=== PATIENT | male | born 1940 | race African-American/Black ===

== ENCOUNTER 2020-10-11 09:08 | Inpatient (IN) | payer MEDICARE ==
[2020-10-11] MEDS ORDERED: Dexamethasone 10 MG/ML VIAL ONE (09:25)
[2020-10-11] MEDS ORDERED: Aspirin 300 MG Suppository ONE (09:26)
[2020-10-11] MEDS ORDERED: Aspirin Chewable 81 MG TAB ONE (09:28)
[2020-10-11] MEDS ORDERED: cefTRIAXone\\ROCEPHIN 2 GM VIAL ONE (09:41)
[2020-10-11 10:46] LABS: CRP (Inflammatory) 22.54 mg/dL (= or < 0.5); Magnesium 2.4 mg/dL (1.6-2.6)
[2020-10-11] MEDS ORDERED: Enoxaparin Sodium 100 MG/ML SYRINGE ONE (10:49)
[2020-10-11 10:51] LABS: Analyzer IN Cardio ER; Base Excess (BEa) -3.3 mEq/L (-2.0 to +3.0); Calcium, Ionized (arterial) 1.01 mmol/L (1.12-1.30); Carboxyhemoglobin (COHb) 0.8 gm% (0.0-3.0); Hemoglobin (Hb) 15.2 g/dL (14.0-18.0); pH, Arterial 7.49 (7.35-7.45)
[2020-10-11 10:53] LABS: ALV-art Gradient 203.675 mmHg (0-20); CO2 Tension 24.1 mmHg (35.0-45.0); O2 Tension (PaO2), arterial 51.4 mmHg (> 70.0); Puncture Site LRA
[2020-10-11 10:57] LABS: Hemoglobin 17.3 g/dL (14.0-18.0); Mean Corpuscular HGB CONC 31.9 g/dL (32.0-36.0); Mean Corpuscular Hemoglobin 28.2 pg (27.0-31.0); Mean Corpuscular Volume 88.5 fL (78.0-98.0); Mean Platelet Volume 9.1 fL (7.4-10.4); Platelet Count 221 thou/uL (130-400); RBC Distribution Width 14.2 % (11.5-14.5); Red Blood Cell (RBC) Count 6.13 mill/uL (4.70-6.10); White Blood Cell (WBC) Count 28.7 thou/uL (4.8-10.8)
[2020-10-11 10:58] LABS: Albumin 3.1 g/dL (3.4-4.8)
[2020-10-11 10:59] LABS: Chloride 104 mmol/L (98-107); Potassium 4.3 mmol/L (3.5-5.1); Sodium 142 mmol/L (136-145)
[2020-10-11 11:00] LABS: Calcium 8.1 mg/dL (7.8-10.44)
[2020-10-11 11:01] LABS: Globulin 4.4 g/dL (2.4-3.5); Glucose 152 mg/dL (83-110); Protein, Total 7.5 g/dL (5.8-8.1)
[2020-10-11 11:02] LABS: Anion Gap 20 mmol/L (10-20); Carbon Dioxide 22 mmol/L (23-31)
[2020-10-11 11:03] LABS: Alkaline Phosphatase 101 U/L (40-110)
[2020-10-11 11:04] LABS: Calc. Creatinine Clearance 0 mL/min (70-130)
[2020-10-11 11:05] LABS: BUN (Urea Nitrogen) 55 mg/dL (8.4-25.7)
[2020-10-11 11:06] LABS: ALT (SGPT) 53 U/L (8-55); AST (SGOT) 52 U/L (5-34)
[2020-10-11] MEDS ORDERED: Vancomycin 1 GM/200 ML BAG ONE (11:08)
[2020-10-11 11:16] LABS: Band 1 % (5-11); Lymphocytes 7 % (21-51); MDiff Complete? YES; Metamyelocyte 1 % (0-0); Monocytes 2 % (0-10); Myelocyte 2 % (0-0); Neutrophil 86 % (42-75); Platelet Clumps SLIGHT; Platelet Morphology Comment Appears Adequate; Polychromasia SLIGHT = 2-3 cells (100X) (0-2/hpf); Reactive Lymphocytes 1 % (0-10)
[2020-10-11] MEDS ORDERED: Acetaminophen 325 MG TAB PO PRN (11:57)
[2020-10-11 12:28] LABS: CKMB 3.7 ng/mL (0-6.6)
[2020-10-11] MEDS ORDERED: Tocilizumab 400 MG, Tocilizumab 200 MG in Sodium Chloride 0.9% 100 ML IV SCH (13:45)
[2020-10-11] MEDS: Azithromycin 500 MG in Sodium Chloride 0.9% 250 ML 250 ML IVPB SCH (14:25)
[2020-10-11 14:52] LABS: Lactic Acid 3.1 mmol/L (0.5-2.2)
[2020-10-11 18:30] LABS: Troponin I Less than 0.100 ng/mL (< 0.028)
[2020-10-11] MEDS: Mometasone 200 MCG/Formoterol 5 MCG 120 PUFF INHALER INH SCH (19:09)
[2020-10-11] MEDS ORDERED: Enoxaparin Sodium 30 MG/0.3 ML SYRINGE SC SCH (21:00)
[2020-10-11] MEDS: Dexamethasone 6 MG in Sodium Chloride 0.9% 50 ML IVPB SCH (21:05)
[2020-10-11] MEDS: Famotidine/PF 20 mg/2ml Vial SLOW IVP SCH (21:06)
[2020-10-12 04:38] LABS: Band 4 % (5-11); Hemoglobin 16.1 g/dL (14.0-18.0); Lymphocytes 6 % (21-51); MDiff Complete? YES; Mean Corpuscular Hemoglobin 27.8 pg (27.0-31.0); Mean Corpuscular Volume 89.6 fL (78.0-98.0); Mean Platelet Volume 8.5 fL (7.4-10.4); Monocytes 9 % (0-10); Neutrophil 81 % (42-75); Platelet Count 238 thou/uL (130-400); Platelet Morphology Comment Appears Adequate; RBC Distribution Width 14.2 % (11.5-14.5); RBC Morphology Normal; Red Blood Cell (RBC) Count 5.81 mill/uL (4.70-6.10); White Blood Cell (WBC) Count 27.8 thou/uL (4.8-10.8)
[2020-10-12 04:49] LABS: Anion Gap 18 mmol/L (10-20); BUN (Urea Nitrogen) 51 mg/dL (8.4-25.7); Calc. Creatinine Clearance 37 mL/min (70-130); Calcium 8.2 mg/dL (7.8-10.44); Carbon Dioxide 19 mmol/L (23-31); Chloride 111 mmol/L (98-107); Glucose 147 mg/dL (83-110); Potassium 4.5 mmol/L (3.5-5.1); Sodium 143 mmol/L (136-145)
[2020-10-12] MEDS ORDERED: Dexamethasone 6 MG in Sodium Chloride 0.9% 50 ML IVPB SCH (09:00)
[2020-10-12] MEDS ORDERED: cefTRIAXone\\ROCEPHIN 1 GM in Sodium Chloride 0.9% 100 ML IVPB SCH (10:00)
[2020-10-12] MEDS: Sodium Chloride 0.45% 1,000 ML IV SCH ×2 (11:03→21:23)
[2020-10-12] MEDS: Enoxaparin Sodium 30 MG/0.3 ML SYRINGE SC SCH ×2 (11:04→20:56)
[2020-10-12] MEDS: Dexamethasone 6 MG in Sodium Chloride 0.9% 50 ML IVPB SCH ×2 (11:04→20:57)
[2020-10-12] MEDS: Azithromycin 500 MG in Sodium Chloride 0.9% 250 ML 250 ML IVPB SCH (14:47)
[2020-10-12] MEDS: Cholecalciferol 1,000 UNITS (25 MCG) TAB PO SCH (20:57)
[2020-10-12] MEDS: Famotidine/PF 20 mg/2ml Vial SLOW IVP SCH (20:57)
[2020-10-12] MEDS: Ascorbic Acid 500 mg Chewable Tablet PO SCH (20:57)
[2020-10-13] MEDS: Mometasone 200 MCG/Formoterol 5 MCG 120 PUFF INHALER INH SCH ×4 (02:40→22:36)
[2020-10-13 03:52] LABS: Hemoglobin 16.3 g/dL (14.0-18.0); Mean Corpuscular HGB CONC 29.9 g/dL (32.0-36.0); Mean Corpuscular Hemoglobin 26.9 pg (27.0-31.0); Platelet Count 201 thou/uL (130-400); Red Blood Cell (RBC) Count 6.07 mill/uL (4.70-6.10); White Blood Cell (WBC) Count 32.5 thou/uL (4.8-10.8)
[2020-10-13 04:06] LABS: Anion Gap 14 mmol/L (10-20); BUN (Urea Nitrogen) 51 mg/dL (8.4-25.7); CRP (Inflammatory) 11.31 mg/dL (= or < 0.5); Calc. Creatinine Clearance 37 mL/min (70-130); Carbon Dioxide 21 mmol/L (23-31); Chloride 111 mmol/L (98-107); Glucose 144 mg/dL (83-110); Potassium 3.9 mmol/L (3.5-5.1); Sodium 142 mmol/L (136-145)
[2020-10-13 04:11] LABS: Lymphocytes 2 % (21-51); MDiff Complete? YES; Neutrophil 98 % (42-75)
[2020-10-13] MEDS ORDERED: Colchicine 0.3 MG TAB PO SCH (09:00)
[2020-10-13] MEDS: Ascorbic Acid 500 mg Chewable Tablet PO SCH ×2 (10:00→21:10)
[2020-10-13] MEDS: Aspirin Chewable 81 MG TAB PO SCH (10:51)
[2020-10-13] MEDS: Cefepime 1 GM in Sodium Chloride 0.9% 100 ML IVPB SCH ×2 (10:52→21:11)
[2020-10-13] MEDS: Colchicine 0.6 MG TAB PO SCH ×2 (10:52→21:10)
[2020-10-13] MEDS: Enoxaparin Sodium 30 MG/0.3 ML SYRINGE SC SCH ×2 (10:53→21:09)
[2020-10-13] MEDS: Dexamethasone 6 MG in Sodium Chloride 0.9% 50 ML IVPB SCH ×2 (10:53→21:09)
[2020-10-13] MEDS: Tamsulosin HCl 0.4 MG CAP PO SCH (10:54)
[2020-10-13] MEDS: Zinc Sulfate 220 MG CAP PO SCH (10:54)
[2020-10-13] MEDS: Famotidine/PF 20 mg/2ml Vial SLOW IVP SCH (21:10)
[2020-10-13] MEDS: Cholecalciferol 1,000 UNITS (25 MCG) TAB PO SCH (21:10)
[2020-10-13] MEDS: Atorvastatin Calcium 40 MG TAB PO SCH (21:10)
[2020-10-14] MEDS: D5 1/4 NS 1,000 ML IV SCH ×2 (02:48→17:00)
[2020-10-14] MEDS: Mometasone 200 MCG/Formoterol 5 MCG 120 PUFF INHALER INH SCH ×2 (09:00→18:34)
[2020-10-14] MEDS: Ascorbic Acid 500 mg Chewable Tablet PO SCH ×2 (12:03→21:05)
[2020-10-14] MEDS: Cefepime 1 GM in Sodium Chloride 0.9% 100 ML IVPB SCH ×2 (12:04→22:04)
[2020-10-14] MEDS: Aspirin Chewable 81 MG TAB PO SCH (12:04)
[2020-10-14] MEDS: Dexamethasone 6 MG in Sodium Chloride 0.9% 50 ML IVPB SCH ×2 (12:05→22:03)
[2020-10-14] MEDS: Colchicine 0.6 MG TAB PO SCH ×2 (12:05→21:05)
[2020-10-14] MEDS: Enoxaparin Sodium 30 MG/0.3 ML SYRINGE SC SCH ×2 (12:05→21:06)
[2020-10-14] MEDS: Zinc Sulfate 220 MG CAP PO SCH (12:06)
[2020-10-14] MEDS: Tamsulosin HCl 0.4 MG CAP PO SCH (12:06)
[2020-10-14] MEDS: Atorvastatin Calcium 40 MG TAB PO SCH (21:05)
[2020-10-14] MEDS: Cholecalciferol 1,000 UNITS (25 MCG) TAB PO SCH (21:05)
[2020-10-14] MEDS: Famotidine/PF 20 mg/2ml Vial SLOW IVP SCH (21:05)
[2020-10-15 07:39] LABS: Band 3 % (5-11); Hemoglobin 17.7 g/dL (14.0-18.0); Lymphocytes 3 % (21-51); MDiff Complete? YES; Mean Corpuscular HGB CONC 32.4 g/dL (32.0-36.0); Mean Corpuscular Hemoglobin 28.3 pg (27.0-31.0); Mean Corpuscular Volume 87.5 fL (78.0-98.0); Mean Platelet Volume 9.5 fL (7.4-10.4); Monocytes 2 % (0-10); Neutrophil 92 % (42-75); Nucleated RBC 1 % (0); Platelet Count 189 thou/uL (130-400); Polychromasia SLIGHT = 2-3 cells (100X) (0-2/hpf); RBC Distribution Width 14.2 % (11.5-14.5); Red Blood Cell (RBC) Count 6.26 mill/uL (4.70-6.10); White Blood Cell (WBC) Count 27.1 thou/uL (4.8-10.8)
[2020-10-15 07:44] LABS: Anion Gap 19 mmol/L (10-20); BUN (Urea Nitrogen) 39 mg/dL (8.4-25.7); Calc. Creatinine Clearance 52 mL/min (70-130); Calcium 8.3 mg/dL (7.8-10.44); Carbon Dioxide 19 mmol/L (23-31); Chloride 109 mmol/L (98-107); Glucose 133 mg/dL (83-110); Potassium 3.7 mmol/L (3.5-5.1); Sodium 143 mmol/L (136-145)
[2020-10-15] MEDS: Cefepime 1 GM in Sodium Chloride 0.9% 100 ML IVPB SCH ×2 (08:14→20:48)
[2020-10-15] MEDS: Zinc Sulfate 220 MG CAP PO SCH (08:15)
[2020-10-15] MEDS: Ascorbic Acid 500 mg Chewable Tablet PO SCH ×2 (08:15→20:49)
[2020-10-15] MEDS: Tamsulosin HCl 0.4 MG CAP PO SCH (08:15)
[2020-10-15] MEDS: Colchicine 0.6 MG TAB PO SCH ×2 (08:15→20:49)
[2020-10-15] MEDS: Aspirin Chewable 81 MG TAB PO SCH (08:15)
[2020-10-15] MEDS: Dexamethasone 6 MG in Sodium Chloride 0.9% 50 ML IVPB SCH ×2 (08:16→20:48)
[2020-10-15] MEDS: Enoxaparin Sodium 30 MG/0.3 ML SYRINGE SC SCH ×2 (08:16→20:49)
[2020-10-15] MEDS: D5 1/4 NS 1,000 ML IV SCH (08:58)
[2020-10-15] MEDS: Mometasone 200 MCG/Formoterol 5 MCG 120 PUFF INHALER INH SCH ×2 (10:12→18:54)
[2020-10-15] MEDS: Cholecalciferol 1,000 UNITS (25 MCG) TAB PO SCH (20:49)
[2020-10-15] MEDS: Atorvastatin Calcium 40 MG TAB PO SCH (20:49)
[2020-10-15] MEDS: Famotidine/PF 20 mg/2ml Vial SLOW IVP SCH (20:49)
[2020-10-16 04:28] LABS: Anion Gap 18 mmol/L (10-20); BUN (Urea Nitrogen) 37 mg/dL (8.4-25.7); Calc. Creatinine Clearance 53 mL/min (70-130); Carbon Dioxide 15 mmol/L (23-31); Chloride 114 mmol/L (98-107); Glucose 118 mg/dL (83-110); Potassium 4.1 mmol/L (3.5-5.1); Sodium 143 mmol/L (136-145)
[2020-10-16 04:50] LABS: Band 5 % (5-11); Hemoglobin 17.5 g/dL (14.0-18.0); Lymphocytes 2 % (21-51); MDiff Complete? YES; Mean Corpuscular HGB CONC 32.2 g/dL (32.0-36.0); Mean Corpuscular Hemoglobin 28.3 pg (27.0-31.0); Mean Corpuscular Volume 87.9 fL (78.0-98.0); Mean Platelet Volume 10.3 fL (7.4-10.4); Monocytes 1 % (0-10); Neutrophil 92 % (42-75); Nucleated RBC 3 % (0); Platelet Clumps MODERATE; Platelet Morphology Comment PLT clumps seen-ADEQ; RBC Distribution Width 14.4 % (11.5-14.5); Red Blood Cell (RBC) Count 6.18 mill/uL (4.70-6.10); White Blood Cell (WBC) Count 33.9 thou/uL (4.8-10.8)
[2020-10-16] MEDS: Colchicine 0.6 MG TAB PO SCH ×2 (08:20→21:24)
[2020-10-16] MEDS: Zinc Sulfate 220 MG CAP PO SCH (08:20)
[2020-10-16] MEDS: Ascorbic Acid 500 mg Chewable Tablet PO SCH ×2 (08:20→21:24)
[2020-10-16] MEDS: Lisinopril/Hydrochlorothiazide 10 mg/12.5 mg Tablet PO SCH (08:20)
[2020-10-16] MEDS: Enoxaparin Sodium 30 MG/0.3 ML SYRINGE SC SCH ×2 (08:20→21:25)
[2020-10-16] MEDS: Aspirin Chewable 81 MG TAB PO SCH (08:20)
[2020-10-16] MEDS: Tamsulosin HCl 0.4 MG CAP PO SCH (08:20)
[2020-10-16] MEDS: Cefepime 1 GM in Sodium Chloride 0.9% 100 ML IVPB SCH ×2 (08:25→21:21)
[2020-10-16] MEDS ORDERED: Sodium Bicarbonate 150 MEQ in Dextrose 5% in Water 1,000 ML IV SCH (08:30)
[2020-10-16] MEDS: Dextrose 5 %-0.45 % NaCl 1,000 ML IV SCH ×2 (10:24→23:50)
[2020-10-16] MEDS: Mometasone 200 MCG/Formoterol 5 MCG 120 PUFF INHALER INH SCH ×2 (10:24→18:59)
[2020-10-16] MEDS: Dexamethasone 6 MG in Sodium Chloride 0.9% 50 ML IVPB SCH ×2 (10:24→21:22)
[2020-10-16] MEDS: Cholecalciferol 1,000 UNITS (25 MCG) TAB PO SCH (21:24)
[2020-10-16] MEDS: Atorvastatin Calcium 40 MG TAB PO SCH (21:24)
[2020-10-16] MEDS: Famotidine/PF 20 mg/2ml Vial SLOW IVP SCH (21:25)
[2020-10-17 03:52] LABS: Hemoglobin 17.7 g/dL (14.0-18.0); Mean Corpuscular HGB CONC 32.2 g/dL (32.0-36.0); Mean Corpuscular Hemoglobin 28.9 pg (27.0-31.0); Mean Corpuscular Volume 89.7 fL (78.0-98.0); RBC Distribution Width 14.7 % (11.5-14.5); Red Blood Cell (RBC) Count 6.12 mill/uL (4.70-6.10); White Blood Cell (WBC) Count 28.1 thou/uL (4.8-10.8)
[2020-10-17 04:15] LABS: Anion Gap 16 mmol/L (10-20); BUN (Urea Nitrogen) 39 mg/dL (8.4-25.7); Calc. Creatinine Clearance 55 mL/min (70-130); Calcium 8.1 mg/dL (7.8-10.44); Carbon Dioxide 15 mmol/L (23-31); Chloride 114 mmol/L (98-107); Glucose 141 mg/dL (83-110); Potassium 3.5 mmol/L (3.5-5.1); Sodium 141 mmol/L (136-145)
[2020-10-17 04:47] LABS: Lymphocytes 4 % (21-51); MDiff Complete? YES; Monocytes 1 % (0-10); Neutrophil 95 % (42-75); Platelet Clumps SLIGHT; Platelet Morphology Comment PLT clumps seen-ADEQ
[2020-10-17] MEDS: Lisinopril/Hydrochlorothiazide 10 mg/12.5 mg Tablet PO SCH (09:33)
[2020-10-17] MEDS: Zinc Sulfate 220 MG CAP PO SCH (09:33)
[2020-10-17] MEDS: Tamsulosin HCl 0.4 MG CAP PO SCH (09:33)
[2020-10-17] MEDS: Ascorbic Acid 500 mg Chewable Tablet PO SCH ×2 (09:33→21:03)
[2020-10-17] MEDS: Aspirin Chewable 81 MG TAB PO SCH (09:34)
[2020-10-17] MEDS: Colchicine 0.6 MG TAB PO SCH ×2 (09:34→21:04)
[2020-10-17] MEDS: Cefepime 1 GM in Sodium Chloride 0.9% 100 ML IVPB SCH ×2 (09:35→21:03)
[2020-10-17] MEDS: Enoxaparin Sodium 30 MG/0.3 ML SYRINGE SC SCH ×2 (09:36→21:04)
[2020-10-17] MEDS: Mometasone 200 MCG/Formoterol 5 MCG 120 PUFF INHALER INH SCH ×2 (09:37→18:15)
[2020-10-17] MEDS: Dextrose 5 %-0.45 % NaCl 1,000 ML IV SCH (09:39)
[2020-10-17] MEDS: Dexamethasone 6 MG in Sodium Chloride 0.9% 50 ML IVPB SCH ×2 (09:44→21:03)
[2020-10-17] MEDS: Atorvastatin Calcium 40 MG TAB PO SCH (21:03)
[2020-10-17] MEDS: Cholecalciferol 1,000 UNITS (25 MCG) TAB PO SCH (21:03)
[2020-10-17] MEDS: Famotidine/PF 20 mg/2ml Vial SLOW IVP SCH (21:03)
[2020-10-17] MEDS: Doxycycline 100 MG CAP PO SCH (21:03)
[2020-10-18] MEDS: Dextrose 5 %-0.45 % NaCl 1,000 ML IV SCH ×2 (01:02→11:22)
[2020-10-18 03:53] LABS: Chloride 114 mmol/L (98-107); Potassium 4.8 mmol/L (3.5-5.1)
[2020-10-18 03:54] LABS: Calcium 7.9 mg/dL (7.8-10.44); Glucose 123 mg/dL (83-110); Sodium 139 mmol/L (136-145)
[2020-10-18 03:56] LABS: Carbon Dioxide 13 mmol/L (23-31)
[2020-10-18 03:58] LABS: Calc. Creatinine Clearance 56 mL/min (70-130)
[2020-10-18 03:59] LABS: BUN (Urea Nitrogen) 37 mg/dL (8.4-25.7)
[2020-10-18 04:34] LABS: Anion Gap 17 mmol/L (10-20)
[2020-10-18 06:50] LABS: Hemoglobin 17.3 g/dL (14.0-18.0); Mean Corpuscular HGB CONC 32.3 g/dL (32.0-36.0); Mean Corpuscular Hemoglobin 28.9 pg (27.0-31.0); Mean Corpuscular Volume 89.5 fL (78.0-98.0); Mean Platelet Volume 10.7 fL (7.4-10.4); Red Blood Cell (RBC) Count 5.99 mill/uL (4.70-6.10); White Blood Cell (WBC) Count 22.9 thou/uL (4.8-10.8)
[2020-10-18 07:17] LABS: Band 1 % (5-11); Lymphocytes 4 % (21-51); MDiff Complete? YES; Monocytes 6 % (0-10); Neutrophil 85 % (42-75); Platelet Clumps MARKED; Platelet Morphology Comment PLT clumps seen-ADEQ; RBC Morphology Normal; Reactive Lymphocytes 4 % (0-10)
[2020-10-18] MEDS: Ascorbic Acid 500 mg Chewable Tablet PO SCH ×2 (09:08→20:34)
[2020-10-18] MEDS: Doxycycline 100 MG CAP PO SCH ×2 (09:08→20:34)
[2020-10-18] MEDS: Aspirin Chewable 81 MG TAB PO SCH (09:08)
[2020-10-18] MEDS: Enoxaparin Sodium 30 MG/0.3 ML SYRINGE SC SCH (09:08)
[2020-10-18] MEDS: Lisinopril/Hydrochlorothiazide 10 mg/12.5 mg Tablet PO SCH (09:08)
[2020-10-18] MEDS: Tamsulosin HCl 0.4 MG CAP PO SCH (09:08)
[2020-10-18] MEDS: Zinc Sulfate 220 MG CAP PO SCH (09:08)
[2020-10-18] MEDS: Colchicine 0.6 MG TAB PO SCH ×2 (09:08→20:34)
[2020-10-18] MEDS: Dexamethasone 6 MG in Sodium Chloride 0.9% 50 ML IVPB SCH ×2 (09:12→20:34)
[2020-10-18] MEDS: Cefepime 1 GM in Sodium Chloride 0.9% 100 ML IVPB SCH ×2 (09:12→20:33)
[2020-10-18] MEDS: Enoxaparin Sodium 40 MG/0.4 ML SYRINGE SC SCH ×2 (11:03→20:35)
[2020-10-18] MEDS: Mometasone 200 MCG/Formoterol 5 MCG 120 PUFF INHALER INH SCH ×2 (11:04→20:33)
[2020-10-18] MEDS: Cholecalciferol 1,000 UNITS (25 MCG) TAB PO SCH (20:34)
[2020-10-18] MEDS: Famotidine/PF 20 mg/2ml Vial SLOW IVP SCH (20:34)
[2020-10-18] MEDS: Atorvastatin Calcium 40 MG TAB PO SCH (20:34)
[2020-10-19] MEDS: Mometasone 200 MCG/Formoterol 5 MCG 120 PUFF INHALER INH SCH ×2 (07:20→20:26)
[2020-10-19 07:26] LABS: Anion Gap 14 mmol/L (10-20); BUN (Urea Nitrogen) 37 mg/dL (8.4-25.7); Calc. Creatinine Clearance 51 mL/min (70-130); Calcium 8.6 mg/dL (7.8-10.44); Carbon Dioxide 20 mmol/L (23-31); Chloride 111 mmol/L (98-107); Glucose 125 mg/dL (83-110); Potassium 3.9 mmol/L (3.5-5.1); Sodium 141 mmol/L (136-145)
[2020-10-19 07:43] LABS: #Lymphocytes 1.9 thou/uL (1.20-3.40); #Monocytes 1.2 thou/uL (0.11-0.59); #Neutrophils 15.9 thou/uL (1.40-6.50); %Neutrophils 83.4 % (42.0-75.0); Band 1 % (5-11); Hemoglobin 18.3 g/dL (14.0-18.0); Lymphocytes 7 % (21-51); MDiff Complete? YES; Mean Corpuscular HGB CONC 32.2 g/dL (32.0-36.0); Mean Corpuscular Hemoglobin 28.3 pg (27.0-31.0); Mean Corpuscular Volume 87.9 fL (78.0-98.0); Mean Platelet Volume 9.6 fL (7.4-10.4); Monocytes 4 % (0-10); Neutrophil 86 % (42-75); Platelet Count 148 thou/uL (130-400); Platelet Morphology Comment Appears Adequate; RBC Distribution Width 15.1 % (11.5-14.5); RBC Morphology Normal; Reactive Lymphocytes 2 % (0-10); Red Blood Cell (RBC) Count 6.45 mill/uL (4.70-6.10); White Blood Cell (WBC) Count 19.8 thou/uL (4.8-10.8)
[2020-10-19] MEDS: Ascorbic Acid 500 mg Chewable Tablet PO SCH ×2 (09:17→20:26)
[2020-10-19] MEDS: Aspirin Chewable 81 MG TAB PO SCH (09:17)
[2020-10-19] MEDS: Dextrose 5 %-0.45 % NaCl 1,000 ML IV SCH (09:17)
[2020-10-19] MEDS: Cefepime 1 GM in Sodium Chloride 0.9% 100 ML IVPB SCH ×2 (09:17→20:26)
[2020-10-19] MEDS: Colchicine 0.6 MG TAB PO SCH ×2 (09:18→20:26)
[2020-10-19] MEDS: Enoxaparin Sodium 40 MG/0.4 ML SYRINGE SC SCH ×2 (09:18→20:27)
[2020-10-19] MEDS: Lisinopril/Hydrochlorothiazide 10 mg/12.5 mg Tablet PO SCH (09:18)
[2020-10-19] MEDS: Doxycycline 100 MG CAP PO SCH ×2 (09:18→20:26)
[2020-10-19] MEDS: Tamsulosin HCl 0.4 MG CAP PO SCH (09:19)
[2020-10-19] MEDS: Zinc Sulfate 220 MG CAP PO SCH (09:19)
[2020-10-19] MEDS: Dexamethasone 6 MG in Sodium Chloride 0.9% 50 ML IVPB SCH ×2 (09:21→20:41)
[2020-10-19] MEDS: Famotidine/PF 20 mg/2ml Vial SLOW IVP SCH (20:26)
[2020-10-19] MEDS: Atorvastatin Calcium 40 MG TAB PO SCH (20:26)
[2020-10-19] MEDS: Cholecalciferol 1,000 UNITS (25 MCG) TAB PO SCH (20:26)
[2020-10-20 06:43] LABS: Hemoglobin 19.4 g/dL (14.0-18.0); Mean Corpuscular HGB CONC 32.1 g/dL (32.0-36.0); Mean Corpuscular Hemoglobin 28.4 pg (27.0-31.0); Mean Corpuscular Volume 88.5 fL (78.0-98.0); Mean Platelet Volume 11.2 fL (7.4-10.4); Platelet Count 160 thou/uL (130-400); Red Blood Cell (RBC) Count 6.82 mill/uL (4.70-6.10); White Blood Cell (WBC) Count 18.1 thou/uL (4.8-10.8)
[2020-10-20] MEDS: Mometasone 200 MCG/Formoterol 5 MCG 120 PUFF INHALER INH SCH ×2 (06:51→22:29)
[2020-10-20] MEDS: Dextrose 5 %-0.45 % NaCl 1,000 ML IV SCH ×2 (06:51→22:00)
[2020-10-20 07:26] LABS: Band 1 % (5-11); Lymphocytes 6 % (21-51); MDiff Complete? YES; Monocytes 4 % (0-10); Neutrophil 89 % (42-75); Platelet Morphology Comment Appears Adequate; RBC Morphology Normal
[2020-10-20] MEDS: Aspirin Chewable 81 MG TAB PO SCH (09:38)
[2020-10-20] MEDS: Ascorbic Acid 500 mg Chewable Tablet PO SCH ×2 (09:38→21:22)
[2020-10-20] MEDS: Cefepime 1 GM in Sodium Chloride 0.9% 100 ML IVPB SCH ×2 (09:39→21:22)
[2020-10-20] MEDS: Dexamethasone 4 MG TAB PO SCH ×2 (09:39→21:23)
[2020-10-20] MEDS: Zinc Sulfate 220 MG CAP PO SCH (09:39)
[2020-10-20] MEDS: Lisinopril/Hydrochlorothiazide 10 mg/12.5 mg Tablet PO SCH (09:40)
[2020-10-20] MEDS: Tamsulosin HCl 0.4 MG CAP PO SCH (09:40)
[2020-10-20] MEDS: Enoxaparin Sodium 40 MG/0.4 ML SYRINGE SC SCH ×2 (09:40→21:23)
[2020-10-20] MEDS: Doxycycline 100 MG CAP PO SCH ×2 (09:40→21:22)
[2020-10-20] MEDS: Colchicine 0.6 MG TAB PO SCH ×2 (09:43→21:23)
[2020-10-20 11:54] LABS: Chloride 112 mmol/L (98-107); Potassium 3.6 mmol/L (3.5-5.1); Sodium 143 mmol/L (136-145)
[2020-10-20 11:55] LABS: Calcium 8.5 mg/dL (7.8-10.44); Glucose 140 mg/dL (83-110)
[2020-10-20 11:57] LABS: Anion Gap 13 mmol/L (10-20); Carbon Dioxide 22 mmol/L (23-31)
[2020-10-20 11:59] LABS: BUN (Urea Nitrogen) 43 mg/dL (8.4-25.7); Calc. Creatinine Clearance 48 mL/min (70-130)
[2020-10-20] MEDS: Cholecalciferol 1,000 UNITS (25 MCG) TAB PO SCH (21:23)
[2020-10-20] MEDS: Atorvastatin Calcium 40 MG TAB PO SCH (21:23)
[2020-10-20] MEDS: Famotidine/PF 20 mg/2ml Vial SLOW IVP SCH (21:24)
[2020-10-21 05:37] LABS: #Monocytes 1.2 thou/uL (0.11-0.59); #Neutrophils 14.6 thou/uL (1.40-6.50); %Basophils 0.1 % (0.0-1.0); %Eosinophils 0.2 % (0.0-10.0); %Lymphocytes 6.1 % (21.0-51.0); %Monocytes 6.9 % (0.0-10.0); %Neutrophils 86.8 % (42.0-75.0); Mean Corpuscular HGB CONC 32.8 g/dL (32.0-36.0); Mean Corpuscular Hemoglobin 29.3 pg (27.0-31.0); Mean Corpuscular Volume 89.3 fL (78.0-98.0); Mean Platelet Volume 10.5 fL (7.4-10.4); Platelet Count 100 thou/uL (130-400); Platelet Morphology Comment Appears Decreased; Red Blood Cell (RBC) Count 6.16 mill/uL (4.70-6.10); White Blood Cell (WBC) Count 16.8 thou/uL (4.8-10.8)
[2020-10-21 05:50] LABS: Anion Gap 14 mmol/L (10-20); BUN (Urea Nitrogen) 41 mg/dL (8.4-25.7); Calc. Creatinine Clearance 61 mL/min (70-130); Calcium 8.4 mg/dL (7.8-10.44); Carbon Dioxide 18 mmol/L (23-31); Chloride 114 mmol/L (98-107); Glucose 126 mg/dL (83-110); Potassium 3.7 mmol/L (3.5-5.1); Sodium 142 mmol/L (136-145)
[2020-10-21] MEDS: Mometasone 200 MCG/Formoterol 5 MCG 120 PUFF INHALER INH SCH (07:45)
[2020-10-21] MEDS: Aspirin Chewable 81 MG TAB PO SCH (09:21)
[2020-10-21] MEDS: Colchicine 0.6 MG TAB PO SCH ×2 (09:21→21:32)
[2020-10-21] MEDS: Ascorbic Acid 500 mg Chewable Tablet PO SCH ×2 (09:21→21:32)
[2020-10-21] MEDS: Cefepime 1 GM in Sodium Chloride 0.9% 100 ML IVPB SCH (09:21)
[2020-10-21] MEDS: Doxycycline 100 MG CAP PO SCH ×2 (09:22→21:36)
[2020-10-21] MEDS: Dexamethasone 4 MG TAB PO SCH ×2 (09:22→21:32)
[2020-10-21] MEDS: Zinc Sulfate 220 MG CAP PO SCH (09:23)
[2020-10-21] MEDS: Lisinopril/Hydrochlorothiazide 10 mg/12.5 mg Tablet PO SCH (09:23)
[2020-10-21] MEDS: Enoxaparin Sodium 40 MG/0.4 ML SYRINGE SC SCH ×2 (09:23→21:32)
[2020-10-21] MEDS: Tamsulosin HCl 0.4 MG CAP PO SCH (09:23)
[2020-10-21] MEDS ORDERED: Norepinephrine 8 MG/0.9% NS 250 ML ONE (19:17)
[2020-10-21] MEDS: Cholecalciferol 1,000 UNITS (25 MCG) TAB PO SCH (21:32)
[2020-10-21] MEDS: Atorvastatin Calcium 40 MG TAB PO SCH (21:32)
[2020-10-21] MEDS: Cefdinir 300 MG CAP PO SCH (21:35)
[2020-10-21] MEDS ORDERED: cefTRIAXone\\ROCEPHIN 1 GM in Sodium Chloride 0.9% 100 ML IVPB SCH (22:00)
[2020-10-22 03:40] LABS: Mean Corpuscular HGB CONC 32.7 g/dL (32.0-36.0); Mean Corpuscular Hemoglobin 29.4 pg (27.0-31.0); Mean Corpuscular Volume 89.7 fL (78.0-98.0); Mean Platelet Volume 10.8 fL (7.4-10.4); Platelet Count 89 thou/uL (130-400); RBC Distribution Width 15.3 % (11.5-14.5); Red Blood Cell (RBC) Count 6.14 mill/uL (4.70-6.10); White Blood Cell (WBC) Count 15.4 thou/uL (4.8-10.8)
[2020-10-22 04:34] LABS: #Eosinphils 0.2 thou/uL (0.0-0.7); #Lymphocytes 1.4 thou/uL (1.20-3.40); #Neutrophils 12.8 thou/uL (1.40-6.50); %Eosinophils 1.5 % (0.0-10.0); %Lymphocytes 8.8 % (21.0-51.0); %Monocytes 6.6 % (0.0-10.0); %Neutrophils 83.1 % (42.0-75.0)
[2020-10-22 06:20] LABS: Anion Gap 17 mmol/L (10-20); BUN (Urea Nitrogen) 38 mg/dL (8.4-25.7); Calc. Creatinine Clearance 58 mL/min (70-130); Carbon Dioxide 15 mmol/L (23-31); Chloride 113 mmol/L (98-107); Glucose 107 mg/dL (83-110); Potassium 4.1 mmol/L (3.5-5.1); Sodium 141 mmol/L (136-145)
[2020-10-22] MEDS: Mometasone 200 MCG/Formoterol 5 MCG 120 PUFF INHALER INH SCH ×2 (07:40→14:29)
[2020-10-22] MEDS: Tamsulosin HCl 0.4 MG CAP PO SCH (09:44)
[2020-10-22] MEDS: Doxycycline 100 MG CAP PO SCH ×2 (09:44→19:34)
[2020-10-22] MEDS: Ascorbic Acid 500 mg Chewable Tablet PO SCH ×2 (09:44→19:35)
[2020-10-22] MEDS: Lisinopril/Hydrochlorothiazide 10 mg/12.5 mg Tablet PO SCH (09:44)
[2020-10-22] MEDS: Colchicine 0.6 MG TAB PO SCH ×2 (09:44→19:35)
[2020-10-22] MEDS: Cefdinir 300 MG CAP PO SCH ×2 (09:44→19:35)
[2020-10-22] MEDS: Zinc Sulfate 220 MG CAP PO SCH (09:45)
[2020-10-22] MEDS: Aspirin Chewable 81 MG TAB PO SCH (09:45)
[2020-10-22] MEDS: Dexamethasone 4 MG TAB PO SCH ×2 (09:45→19:34)
[2020-10-22] MEDS: Enoxaparin Sodium 40 MG/0.4 ML SYRINGE SC SCH ×2 (09:46→19:35)
[2020-10-22 19:14] LABS: Fibrinogen 301 mg/dL (253-463)
[2020-10-22 19:15] LABS: INR-International Normal Ratio 1.1; PTT 30.9 sec (22.9-36.1); Prothrombin Time 14.8 sec (12.0-14.7)
[2020-10-22 19:16] LABS: D-Dimer Test 1.78 *mcg/mL (0.27-0.43); FSP-Qualitative ABNORMAL (Normal); FSP-Semiquantitative >=5 & <20 mcg/mL (Less than 5)
[2020-10-22] MEDS: Sodium Bicarbonate Tab 325 MG TAB PO SCH (19:34)
[2020-10-22] MEDS: Cholecalciferol 1,000 UNITS (25 MCG) TAB PO SCH (19:34)
[2020-10-22] MEDS: Atorvastatin Calcium 40 MG TAB PO SCH (19:35)
[2020-10-22 19:43] LABS: Platelet Count 86 thou/uL (130-400)
[2020-10-22] MEDS: Budesonide 0.5 MG/2 ML NEB NEB SCH (19:53)
[2020-10-23 03:56] LABS: Hemoglobin 17.3 g/dL (14.0-18.0); Mean Corpuscular Hemoglobin 28.8 pg (27.0-31.0); Mean Platelet Volume 11.3 fL (7.4-10.4); Platelet Count 71 thou/uL (130-400); RBC Distribution Width 15.4 % (11.5-14.5); White Blood Cell (WBC) Count 16.6 thou/uL (4.8-10.8)
[2020-10-23 03:57] LABS: #Lymphocytes 0.9 thou/uL (1.20-3.40); #Monocytes 0.6 thou/uL (0.11-0.59); #Neutrophils 15.2 thou/uL (1.40-6.50); %Basophils 0.2 % (0.0-1.0); %Eosinophils 0.1 % (0.0-10.0); %Lymphocytes 5.1 % (21.0-51.0); %Monocytes 3.3 % (0.0-10.0); %Neutrophils 91.2 % (42.0-75.0)
[2020-10-23 04:08] LABS: Anion Gap 14 mmol/L (10-20); BUN (Urea Nitrogen) 36 mg/dL (8.4-25.7); Calc. Creatinine Clearance 52 mL/min (70-130); Calcium 8.2 mg/dL (7.8-10.44); Carbon Dioxide 22 mmol/L (23-31); Chloride 110 mmol/L (98-107); Glucose 124 mg/dL (83-110); Potassium 3.7 mmol/L (3.5-5.1); Sodium 142 mmol/L (136-145)
[2020-10-23] MEDS: Budesonide 0.5 MG/2 ML NEB NEB SCH ×2 (06:38→18:27)
[2020-10-23] MEDS: Aspirin Chewable 81 MG TAB PO SCH (09:52)
[2020-10-23] MEDS: Dexamethasone 4 MG TAB PO SCH ×2 (09:52→21:09)
[2020-10-23] MEDS: Ascorbic Acid 500 mg Chewable Tablet PO SCH ×2 (09:52→21:09)
[2020-10-23] MEDS: Doxycycline 100 MG CAP PO SCH ×2 (09:52→21:08)
[2020-10-23] MEDS: Zinc Sulfate 220 MG CAP PO SCH (09:53)
[2020-10-23] MEDS: Cefdinir 300 MG CAP PO SCH ×2 (09:53→21:09)
[2020-10-23] MEDS: Tamsulosin HCl 0.4 MG CAP PO SCH (09:53)
[2020-10-23] MEDS: Sodium Bicarbonate Tab 325 MG TAB PO SCH ×2 (09:53→21:09)
[2020-10-23] MEDS: Lisinopril/Hydrochlorothiazide 10 mg/12.5 mg Tablet PO SCH (09:53)
[2020-10-23] MEDS: Colchicine 0.6 MG TAB PO SCH ×2 (09:54→21:09)
[2020-10-23] MEDS ORDERED: Argatroban (Non -ESRD) 250 MG in Sodium Chloride 0.9% 250 ML 250 ML IVPB SCH (13:15)
[2020-10-23 14:36] LABS: Hemoglobin 17.6 g/dL (14.0-18.0); Mean Corpuscular HGB CONC 31.6 g/dL (32.0-36.0); Mean Corpuscular Hemoglobin 28.5 pg (27.0-31.0); Mean Corpuscular Volume 90.3 fL (78.0-98.0); Mean Platelet Volume 11.2 fL (7.4-10.4); Platelet Count 83 thou/uL (130-400); RBC Distribution Width 15.6 % (11.5-14.5); Red Blood Cell (RBC) Count 6.16 mill/uL (4.70-6.10); White Blood Cell (WBC) Count 20.8 thou/uL (4.8-10.8)
[2020-10-23 14:46] LABS: ALT (SGPT) 192 U/L (8-55); AST (SGOT) 100 U/L (5-34); Albumin 3.1 g/dL (3.4-4.8); Alkaline Phosphatase 130 U/L (40-110); Bilirubin, Direct 0.4 mg/dL (0.1-0.3); Protein, Total 6.6 g/dL (5.8-8.1)
[2020-10-23 14:47] LABS: INR-International Normal Ratio 1.1; PTT 29.1 sec (22.9-36.1); Prothrombin Time 14.7 sec (12.0-14.7)
[2020-10-23 14:50] LABS: Band 1 % (5-11); Lymphocytes 2 % (21-51); MDiff Complete? YES; Monocytes 4 % (0-10); Neutrophil 93 % (42-75); Platelet Morphology Comment Appears Decreased; RBC Morphology Normal
[2020-10-23] MEDS: Piperacillin/Tazobactam 3.375 GM in Sodium Chloride 0.9% 100 ML IVPB SCH (17:47)
[2020-10-23] MEDS ORDERED: Enoxaparin Sodium 40 MG/0.4 ML SYRINGE SC SCH (21:00)
[2020-10-23] MEDS: Atorvastatin Calcium 40 MG TAB PO SCH (21:08)
[2020-10-23] MEDS: Cholecalciferol 1,000 UNITS (25 MCG) TAB PO SCH (21:09)
[2020-10-23 22:20] LABS: INR-International Normal Ratio 2.5; PTT 58.2 sec (22.9-36.1); Prothrombin Time 27.2 sec (12.0-14.7)
[2020-10-24] MEDS: Piperacillin/Tazobactam 3.375 GM in Sodium Chloride 0.9% 100 ML IVPB SCH ×2 (00:35→06:26)
[2020-10-24 03:39] LABS: INR-International Normal Ratio 2.1; Prothrombin Time 23.7 sec (12.0-14.7)
[2020-10-24 03:40] LABS: PTT 50.2 sec (22.9-36.1)
[2020-10-24 05:15] LABS: Hemoglobin 15.6 g/dL (14.0-18.0); Mean Corpuscular HGB CONC 33.7 g/dL (32.0-36.0); Mean Corpuscular Volume 88.9 fL (78.0-98.0); Mean Platelet Volume 11.2 fL (7.4-10.4); Platelet Count 85 thou/uL (130-400); RBC Distribution Width 15.2 % (11.5-14.5); White Blood Cell (WBC) Count 21.8 thou/uL (4.8-10.8)
[2020-10-24 05:42] LABS: Lymphocytes 8 % (21-51); MDiff Complete? YES; Monocytes 8 % (0-10); Neutrophil 84 % (42-75); Platelet Morphology Comment Appears Decreased
[2020-10-24] MEDS: Budesonide 0.5 MG/2 ML NEB NEB SCH ×2 (06:50→18:48)
[2020-10-24 06:54] LABS: Chloride 112 mmol/L (98-107); Potassium 3.6 mmol/L (3.5-5.1); Sodium 142 mmol/L (136-145)
[2020-10-24 06:55] LABS: Calcium 7.6 mg/dL (7.8-10.44); Glucose 136 mg/dL (83-110)
[2020-10-24 06:57] LABS: Anion Gap 12 mmol/L (10-20); Carbon Dioxide 22 mmol/L (23-31)
[2020-10-24 06:59] LABS: Calc. Creatinine Clearance 54 mL/min (70-130)
[2020-10-24 07:00] LABS: BUN (Urea Nitrogen) 36 mg/dL (8.4-25.7)
[2020-10-24] MEDS: Colchicine 0.6 MG TAB PO SCH (08:48)
[2020-10-24] MEDS: Tamsulosin HCl 0.4 MG CAP PO SCH (08:48)
[2020-10-24] MEDS: Lisinopril/Hydrochlorothiazide 10 mg/12.5 mg Tablet PO SCH (08:48)
[2020-10-24] MEDS: Sodium Bicarbonate Tab 325 MG TAB PO SCH (08:48)
[2020-10-24] MEDS: Dexamethasone 4 MG TAB PO SCH ×2 (08:48→20:57)
[2020-10-24] MEDS: Aspirin Chewable 81 MG TAB PO SCH (08:48)
[2020-10-24] MEDS: Ascorbic Acid 500 mg Chewable Tablet PO SCH ×2 (08:49→20:53)
[2020-10-24] MEDS: Zinc Sulfate 220 MG CAP PO SCH (08:49)
[2020-10-24] MEDS: guaiFENesin ER 600 MG TAB PO SCH (20:52)
[2020-10-24] MEDS: Cholecalciferol 1,000 UNITS (25 MCG) TAB PO SCH (20:53)
[2020-10-24] MEDS: Atorvastatin Calcium 40 MG TAB PO SCH (20:53)
[2020-10-24] MEDS ORDERED: Enoxaparin Sodium 30 MG/0.3 ML SYRINGE SC SCH (21:00)
[2020-10-24] MEDS: Enoxaparin Sodium 30 MG/0.3 ML SYRINGE SC SCH (21:12)
[2020-10-25 05:42] LABS: #Lymphocytes 0.9 thou/uL (1.20-3.40); #Neutrophils 20.9 thou/uL (1.40-6.50); %Eosinophils 0.2 % (0.0-10.0); %Lymphocytes 4.1 % (21.0-51.0); %Monocytes 4.5 % (0.0-10.0); %Neutrophils 91.2 % (42.0-75.0); Hemoglobin 16.3 g/dL (14.0-18.0); Mean Corpuscular HGB CONC 31.4 g/dL (32.0-36.0); Mean Corpuscular Hemoglobin 28.5 pg (27.0-31.0); Mean Corpuscular Volume 90.6 fL (78.0-98.0); Mean Platelet Volume 10.7 fL (7.4-10.4); Platelet Count 78 thou/uL (130-400); RBC Distribution Width 15.5 % (11.5-14.5); Red Blood Cell (RBC) Count 5.72 mill/uL (4.70-6.10); White Blood Cell (WBC) Count 22.9 thou/uL (4.8-10.8)
[2020-10-25 05:58] LABS: ALT (SGPT) 159 U/L (8-55); AST (SGOT) 83 U/L (5-34); Albumin 2.9 g/dL (3.4-4.8); Alkaline Phosphatase 119 U/L (40-110); Bilirubin, Direct 0.5 mg/dL (0.1-0.3); CRP (Inflammatory) Less than 0.50 mg/dL (= or < 0.5); Protein, Total 5.8 g/dL (5.8-8.1)
[2020-10-25 06:05] LABS: Anion Gap 14 mmol/L (10-20); BUN (Urea Nitrogen) 37 mg/dL (8.4-25.7); Calc. Creatinine Clearance 54 mL/min (70-130); Calcium 8.1 mg/dL (7.8-10.44); Carbon Dioxide 22 mmol/L (23-31); Chloride 111 mmol/L (98-107); Glucose 121 mg/dL (83-110); Potassium 3.8 mmol/L (3.5-5.1); Sodium 143 mmol/L (136-145)
[2020-10-25] MEDS: Budesonide 0.5 MG/2 ML NEB NEB SCH ×2 (06:49→19:31)
[2020-10-25] MEDS: Dexamethasone 4 MG TAB PO SCH (09:34)
[2020-10-25] MEDS: Lisinopril/Hydrochlorothiazide 10 mg/12.5 mg Tablet PO SCH (09:34)
[2020-10-25] MEDS: Ascorbic Acid 500 mg Chewable Tablet PO SCH ×2 (09:34→21:12)
[2020-10-25] MEDS: Tamsulosin HCl 0.4 MG CAP PO SCH (09:35)
[2020-10-25] MEDS: guaiFENesin ER 600 MG TAB PO SCH ×2 (09:35→21:12)
[2020-10-25] MEDS: Zinc Sulfate 220 MG CAP PO SCH (09:35)
[2020-10-25] MEDS: Enoxaparin Sodium 30 MG/0.3 ML SYRINGE SC SCH ×2 (10:07→21:12)
[2020-10-25 16:16] LABS: Heparin-Induced Ab (HITA) 0.092 OD (0.000-0.400)
[2020-10-25 17:31] LABS: Actual Bicarbonate (HCO3a) 19.5 mEq/L (22-28); Analyzer IN Cardio ER; Base Excess (BEa) -2.2 mEq/L (-2.0 to +3.0); CO2 Tension 27.1 mmHg (35.0-45.0); Calcium, Ionized (arterial) 1.16 mmol/L (1.12-1.30); Carboxyhemoglobin (COHb) 0.6 gm% (0.0-3.0); Hemoglobin (Hb) 16.7 g/dL (14.0-18.0); O2 Tension (PaO2), arterial 59.6 mmHg (> 70.0); Puncture Site RRA; pH, Arterial 7.48 (7.35-7.45)
[2020-10-25 17:32] LABS: ALV-art Gradient 619.525 mmHg (0-20)
[2020-10-25] MEDS ORDERED: Lorazepam 2 MG/ML VIAL SLOW IVP PRN (18:06)
[2020-10-25] MEDS ORDERED: Morphine 2 MG/ML VIAL SLOW IVP PRN ×2 (18:06→19:07)
[2020-10-25] MEDS: methylPREDNISolone Sod Succ 40 MG VIAL IVP SCH (18:47)
[2020-10-25] MEDS: Dextrose 5 % And 0.9 % NaCl 1,000 ML IV SCH (18:48)
[2020-10-25] MEDS: Albuterol 200 PUFF (6.7GM INHALER) INH SCH (19:32)
[2020-10-25] MEDS: Cholecalciferol 1,000 UNITS (25 MCG) TAB PO SCH (21:12)
[2020-10-25] MEDS: Atorvastatin Calcium 40 MG TAB PO SCH (21:12)
[2020-10-26] MEDS: methylPREDNISolone Sod Succ 40 MG VIAL IVP SCH ×4 (00:58→18:09)
[2020-10-26] MEDS: Albuterol 200 PUFF (6.7GM INHALER) INH SCH ×4 (01:20→22:37)
[2020-10-26 04:19] LABS: #Lymphocytes 1.4 thou/uL (1.20-3.40); #Monocytes 0.6 thou/uL (0.11-0.59); #Neutrophils 17.7 thou/uL (1.40-6.50); %Basophils 0.1 % (0.0-1.0); %Lymphocytes 7.3 % (21.0-51.0); %Monocytes 3.2 % (0.0-10.0); %Neutrophils 89.5 % (42.0-75.0); Mean Corpuscular HGB CONC 31.5 g/dL (32.0-36.0); Mean Corpuscular Hemoglobin 28.4 pg (27.0-31.0); Mean Corpuscular Volume 90.1 fL (78.0-98.0); Mean Platelet Volume 10.7 fL (7.4-10.4); Platelet Count 67 thou/uL (130-400); RBC Distribution Width 15.5 % (11.5-14.5); White Blood Cell (WBC) Count 19.7 thou/uL (4.8-10.8)
[2020-10-26 04:35] LABS: Anion Gap 12 mmol/L (10-20); BUN (Urea Nitrogen) 39 mg/dL (8.4-25.7); Calc. Creatinine Clearance 50 mL/min (70-130); Calcium 7.9 mg/dL (7.8-10.44); Carbon Dioxide 22 mmol/L (23-31); Chloride 107 mmol/L (98-107); Glucose 280 mg/dL (83-110); Potassium 3.8 mmol/L (3.5-5.1); Sodium 137 mmol/L (136-145)
[2020-10-26] MEDS: Budesonide 0.5 MG/2 ML NEB NEB SCH (07:00)
[2020-10-26] MEDS: Ascorbic Acid 500 mg Chewable Tablet PO SCH ×2 (08:23→21:35)
[2020-10-26] MEDS: Zinc Sulfate 220 MG CAP PO SCH (08:24)
[2020-10-26] MEDS: Tamsulosin HCl 0.4 MG CAP PO SCH (08:24)
[2020-10-26] MEDS: Lisinopril/Hydrochlorothiazide 10 mg/12.5 mg Tablet PO SCH (08:25)
[2020-10-26] MEDS: guaiFENesin ER 600 MG TAB PO SCH ×2 (08:25→21:35)
[2020-10-26] MEDS: Megestrol Acetate 40 MG TAB PO SCH (08:25)
[2020-10-26] MEDS: Enoxaparin Sodium 30 MG/0.3 ML SYRINGE SC SCH ×2 (08:29→21:35)
[2020-10-26] MEDS ORDERED: Dextrose 5% in Water 1,000 ML IV PRN (10:00)
[2020-10-26] MEDS ORDERED: HumaLOG 300 UNITS/3 ML VIAL SC PRN (10:00)
[2020-10-26] MEDS ORDERED: Dextrose 50% Abboject 50 ML SYRINGE IVP PRN (10:00)
[2020-10-26] MEDS: Dextrose 5 % And 0.9 % NaCl 1,000 ML IV SCH (14:47)
[2020-10-26] MEDS: Atorvastatin Calcium 40 MG TAB PO SCH (21:35)
[2020-10-26] MEDS: Cholecalciferol 1,000 UNITS (25 MCG) TAB PO SCH (21:35)
[2020-10-27] MEDS: methylPREDNISolone Sod Succ 40 MG VIAL IVP SCH ×5 (00:44→23:26)
[2020-10-27] MEDS: Albuterol 200 PUFF (6.7GM INHALER) INH SCH ×4 (00:46→19:25)
[2020-10-27 04:07] LABS: Band 2 % (5-11); Hemoglobin 15.1 g/dL (14.0-18.0); Lymphocytes 4 % (21-51); MDiff Complete? YES; Mean Corpuscular HGB CONC 32.6 g/dL (32.0-36.0); Mean Corpuscular Hemoglobin 29.2 pg (27.0-31.0); Mean Corpuscular Volume 89.8 fL (78.0-98.0); Mean Platelet Volume 11.8 fL (7.4-10.4); Monocytes 5 % (0-10); Neutrophil 89 % (42-75); Platelet Count 55 thou/uL (130-400); Platelet Morphology Comment Appears Decreased; RBC Distribution Width 15.5 % (11.5-14.5); RBC Morphology Normal; Red Blood Cell (RBC) Count 5.16 mill/uL (4.70-6.10)
[2020-10-27] MEDS: Megestrol Acetate 40 MG TAB PO SCH (10:16)
[2020-10-27] MEDS: Zinc Sulfate 220 MG CAP PO SCH (10:16)
[2020-10-27] MEDS: Ascorbic Acid 500 mg Chewable Tablet PO SCH ×2 (10:16→20:51)
[2020-10-27] MEDS: Dextrose 5 % And 0.9 % NaCl 1,000 ML IV SCH (10:17)
[2020-10-27] MEDS: guaiFENesin ER 600 MG TAB PO SCH ×2 (10:17→20:50)
[2020-10-27] MEDS: Tamsulosin HCl 0.4 MG CAP PO SCH (10:17)
[2020-10-27] MEDS: Enoxaparin Sodium 30 MG/0.3 ML SYRINGE SC SCH (10:31)
[2020-10-27 14:53] LABS: Chloride 109 mmol/L (98-107); Potassium 3.4 mmol/L (3.5-5.1); Sodium 135 mmol/L (136-145)
[2020-10-27 14:54] LABS: Calcium 7.8 mg/dL (7.8-10.44); Glucose 263 mg/dL (83-110)
[2020-10-27 14:56] LABS: Anion Gap 11 mmol/L (10-20); Carbon Dioxide 18 mmol/L (23-31)
[2020-10-27 14:58] LABS: Calc. Creatinine Clearance 59 mL/min (70-130)
[2020-10-27 14:59] LABS: BUN (Urea Nitrogen) 34 mg/dL (8.4-25.7)
[2020-10-27] MEDS: Atorvastatin Calcium 40 MG TAB PO SCH (20:51)
[2020-10-27] MEDS: Cholecalciferol 1,000 UNITS (25 MCG) TAB PO SCH (20:51)
[2020-10-28] MEDS: Albuterol 200 PUFF (6.7GM INHALER) INH SCH ×4 (00:56→20:59)
[2020-10-28 05:13] LABS: Anion Gap 10 mmol/L (10-20); BUN (Urea Nitrogen) 32 mg/dL (8.4-25.7); Calc. Creatinine Clearance 65 mL/min (70-130); Calcium 7.9 mg/dL (7.8-10.44); Carbon Dioxide 23 mmol/L (23-31); Chloride 107 mmol/L (98-107); Glucose 145 mg/dL (83-110); Potassium 3.9 mmol/L (3.5-5.1); Sodium 136 mmol/L (136-145)
[2020-10-28 05:18] LABS: #Neutrophils 19.1 thou/uL (1.40-6.50); %Basophils 0.1 % (0.0-1.0); %Lymphocytes 4.6 % (21.0-51.0); %Monocytes 4.9 % (0.0-10.0); %Neutrophils 90.4 % (42.0-75.0); Hemoglobin 14.2 g/dL (14.0-18.0); Mean Corpuscular HGB CONC 31.5 g/dL (32.0-36.0); Mean Corpuscular Hemoglobin 28.2 pg (27.0-31.0); Mean Corpuscular Volume 89.5 fL (78.0-98.0); Mean Platelet Volume 10.3 fL (7.4-10.4); Platelet Count 71 thou/uL (130-400); RBC Distribution Width 15.6 % (11.5-14.5); Red Blood Cell (RBC) Count 5.02 mill/uL (4.70-6.10); White Blood Cell (WBC) Count 21.1 thou/uL (4.8-10.8)
[2020-10-28] MEDS: Dextrose 5 % And 0.9 % NaCl 1,000 ML IV SCH (05:47)
[2020-10-28] MEDS: methylPREDNISolone Sod Succ 40 MG VIAL IVP SCH ×4 (05:47→23:42)
[2020-10-28] MEDS: Ascorbic Acid 500 mg Chewable Tablet PO SCH ×2 (09:25→21:35)
[2020-10-28] MEDS: Tamsulosin HCl 0.4 MG CAP PO SCH (09:26)
[2020-10-28] MEDS: guaiFENesin ER 600 MG TAB PO SCH ×2 (09:26→21:35)
[2020-10-28] MEDS: Zinc Sulfate 220 MG CAP PO SCH (09:26)
[2020-10-28] MEDS: Megestrol Acetate 40 MG TAB PO SCH (09:26)
[2020-10-28] MEDS: Atorvastatin Calcium 40 MG TAB PO SCH (21:35)
[2020-10-28] MEDS: Cholecalciferol 1,000 UNITS (25 MCG) TAB PO SCH (21:35)
[2020-10-29] MEDS: Albuterol 200 PUFF (6.7GM INHALER) INH SCH ×2 (01:17→07:18)
[2020-10-29] MEDS: Dextrose 5 % And 0.9 % NaCl 1,000 ML IV SCH ×2 (03:15→20:03)
[2020-10-29 03:39] LABS: #Lymphocytes 0.8 thou/uL (1.20-3.40); #Monocytes 1.2 thou/uL (0.11-0.59); #Neutrophils 17.4 thou/uL (1.40-6.50); %Basophils 0.1 % (0.0-1.0); %Lymphocytes 4.2 % (21.0-51.0); %Monocytes 6.4 % (0.0-10.0); %Neutrophils 89.2 % (42.0-75.0); Hemoglobin 15.3 g/dL (14.0-18.0); Mean Corpuscular HGB CONC 33.2 g/dL (32.0-36.0); Mean Corpuscular Hemoglobin 29.6 pg (27.0-31.0); Mean Corpuscular Volume 89.4 fL (78.0-98.0); Mean Platelet Volume 10.2 fL (7.4-10.4); Platelet Count 69 thou/uL (130-400); RBC Distribution Width 15.8 % (11.5-14.5); Red Blood Cell (RBC) Count 5.15 mill/uL (4.70-6.10); White Blood Cell (WBC) Count 19.5 thou/uL (4.8-10.8)
[2020-10-29 03:57] LABS: Anion Gap 13 mmol/L (10-20); BUN (Urea Nitrogen) 32 mg/dL (8.4-25.7); Calc. Creatinine Clearance 66 mL/min (70-130); Calcium 8.1 mg/dL (7.8-10.44); Carbon Dioxide 23 mmol/L (23-31); Chloride 107 mmol/L (98-107); Glucose 142 mg/dL (83-110); Potassium 4.2 mmol/L (3.5-5.1); Sodium 139 mmol/L (136-145)
[2020-10-29] MEDS: methylPREDNISolone Sod Succ 40 MG VIAL IVP SCH ×2 (05:40→20:02)
[2020-10-29] MEDS: Ipratropium/Albuterol Sulfate 4 GM AER IH SCH ×5 (07:18→21:30)
[2020-10-29] MEDS: Zinc Sulfate 220 MG CAP PO SCH (08:33)
[2020-10-29] MEDS: guaiFENesin ER 600 MG TAB PO SCH ×2 (08:33→20:02)
[2020-10-29] MEDS: Ascorbic Acid 500 mg Chewable Tablet PO SCH ×2 (08:34→20:02)
[2020-10-29] MEDS: Tamsulosin HCl 0.4 MG CAP PO SCH (08:34)
[2020-10-29] MEDS: Megestrol Acetate 40 MG TAB PO SCH (08:35)
[2020-10-29] MEDS: Cholecalciferol 1,000 UNITS (25 MCG) TAB PO SCH (20:02)
[2020-10-29] MEDS: Atorvastatin Calcium 40 MG TAB PO SCH (20:02)
[2020-10-30] MEDS: Ipratropium/Albuterol Sulfate 4 GM AER IH SCH ×6 (01:39→22:39)
[2020-10-30] MEDS: Zinc Sulfate 220 MG CAP PO SCH (08:54)
[2020-10-30] MEDS: guaiFENesin ER 600 MG TAB PO SCH ×2 (08:54→21:06)
[2020-10-30] MEDS: Megestrol Acetate 40 MG TAB PO SCH (08:54)
[2020-10-30] MEDS: Ascorbic Acid 500 mg Chewable Tablet PO SCH ×2 (08:54→21:06)
[2020-10-30] MEDS: methylPREDNISolone Sod Succ 40 MG VIAL IVP SCH ×2 (08:54→21:07)
[2020-10-30] MEDS: Tamsulosin HCl 0.4 MG CAP PO SCH (08:55)
[2020-10-30 12:21] LABS: Anion Gap 21 mmol/L (10-20); BUN (Urea Nitrogen) 31 mg/dL (8.4-25.7); Calc. Creatinine Clearance 67 mL/min (70-130); Carbon Dioxide 15 mmol/L (23-31); Chloride 109 mmol/L (98-107); Glucose 100 mg/dL (83-110); Potassium 4.4 mmol/L (3.5-5.1); Sodium 141 mmol/L (136-145)
[2020-10-30 12:32] VITALS: BMI 30.1
[2020-10-30 14:09] LABS: #Eosinphils 0.1 thou/uL (0.0-0.7); #Lymphocytes 0.4 thou/uL (1.20-3.40); #Monocytes 0.8 thou/uL (0.11-0.59); %Eosinophils 0.4 % (0.0-10.0); %Lymphocytes 2.2 % (21.0-51.0); %Monocytes 4.9 % (0.0-10.0); %Neutrophils 92.4 % (42.0-75.0); Mean Corpuscular HGB CONC 32.9 g/dL (32.0-36.0); Mean Corpuscular Hemoglobin 29.6 pg (27.0-31.0); Mean Corpuscular Volume 89.8 fL (78.0-98.0); Mean Platelet Volume 11.1 fL (7.4-10.4); Platelet Count 65 thou/uL (130-400); Red Blood Cell (RBC) Count 5.07 mill/uL (4.70-6.10); White Blood Cell (WBC) Count 17.3 thou/uL (4.8-10.8)
[2020-10-30 17:51] VITALS: BP 139/93
[2020-10-30] MEDS ORDERED: acetaZOLAMIDE Sodium 500 mg Vial IVP SCH (21:00)
[2020-10-30] MEDS: Dextrose 5 % And 0.9 % NaCl 1,000 ML IV SCH (21:06)
[2020-10-30] MEDS: Atorvastatin Calcium 40 MG TAB PO SCH (21:06)
[2020-10-30] MEDS: Cholecalciferol 1,000 UNITS (25 MCG) TAB PO SCH (21:06)
[2020-10-30] MEDS: Sodium Bicarbonate Tab 325 MG TAB PO SCH (21:06)
[2020-10-31] MEDS: Ipratropium/Albuterol Sulfate 4 GM AER IH SCH ×6 (03:34→23:45)
[2020-10-31 04:50] LABS: #Lymphocytes 0.5 thou/uL (1.20-3.40); #Monocytes 0.8 thou/uL (0.11-0.59); #Neutrophils 14.1 thou/uL (1.40-6.50); %Eosinophils 0.2 % (0.0-10.0); %Monocytes 5.4 % (0.0-10.0); %Neutrophils 91.4 % (42.0-75.0); Hemoglobin 15.2 g/dL (14.0-18.0); Mean Corpuscular Hemoglobin 29.9 pg (27.0-31.0); Mean Corpuscular Volume 90.5 fL (78.0-98.0); Mean Platelet Volume 10.9 fL (7.4-10.4); Platelet Count 59 thou/uL (130-400); RBC Distribution Width 16.2 % (11.5-14.5); Red Blood Cell (RBC) Count 5.07 mill/uL (4.70-6.10); White Blood Cell (WBC) Count 15.4 thou/uL (4.8-10.8)
[2020-10-31 05:04] LABS: Anion Gap 16 mmol/L (10-20); BUN (Urea Nitrogen) 29 mg/dL (8.4-25.7); Calc. Creatinine Clearance 61 mL/min (70-130); Calcium 7.9 mg/dL (7.8-10.44); Carbon Dioxide 18 mmol/L (23-31); Chloride 108 mmol/L (98-107); Glucose 207 mg/dL (83-110); Potassium 4.3 mmol/L (3.5-5.1); Sodium 138 mmol/L (136-145)
[2020-10-31] MEDS: Tamsulosin HCl 0.4 MG CAP PO SCH (08:23)
[2020-10-31] MEDS: guaiFENesin ER 600 MG TAB PO SCH ×2 (08:24→20:39)
[2020-10-31] MEDS: methylPREDNISolone Sod Succ 40 MG VIAL IVP SCH (08:24)
[2020-10-31] MEDS: Zinc Sulfate 220 MG CAP PO SCH (08:24)
[2020-10-31] MEDS: Ascorbic Acid 500 mg Chewable Tablet PO SCH ×2 (08:24→20:40)
[2020-10-31] MEDS: Megestrol Acetate 40 MG TAB PO SCH (08:27)
[2020-10-31] MEDS: Sodium Bicarbonate Tab 325 MG TAB PO SCH ×2 (08:27→20:39)
[2020-10-31] MEDS ORDERED: Furosemide 20 MG/2 ML VIAL SLOW IVP SCH (09:00)
[2020-10-31] MEDS ORDERED: Dexamethasone 4 MG TAB PO SCH (09:30)
[2020-10-31] MEDS: Cholecalciferol 1,000 UNITS (25 MCG) TAB PO SCH (20:39)
[2020-10-31] MEDS: Atorvastatin Calcium 40 MG TAB PO SCH (20:39)
[2020-11-01] MEDS: Ipratropium/Albuterol Sulfate 4 GM AER IH SCH ×4 (03:30→14:44)
[2020-11-01 06:37] LABS: #Eosinphils 0.1 thou/uL (0.0-0.7); #Lymphocytes 1.4 thou/uL (1.20-3.40); #Monocytes 1.7 thou/uL (0.11-0.59); #Neutrophils 15.2 thou/uL (1.40-6.50); %Basophils 0.1 % (0.0-1.0); %Eosinophils 0.5 % (0.0-10.0); %Lymphocytes 7.4 % (21.0-51.0); %Monocytes 9.4 % (0.0-10.0); %Neutrophils 82.7 % (42.0-75.0); Hemoglobin 16.4 g/dL (14.0-18.0); Mean Corpuscular HGB CONC 32.8 g/dL (32.0-36.0); Mean Corpuscular Hemoglobin 29.5 pg (27.0-31.0); Mean Platelet Volume 10.7 fL (7.4-10.4); Platelet Count 50 thou/uL (130-400); RBC Distribution Width 16.5 % (11.5-14.5); Red Blood Cell (RBC) Count 5.55 mill/uL (4.70-6.10); White Blood Cell (WBC) Count 18.3 thou/uL (4.8-10.8)
[2020-11-01 06:51] LABS: Anion Gap 18 mmol/L (10-20); BUN (Urea Nitrogen) 28 mg/dL (8.4-25.7); Calc. Creatinine Clearance 68 mL/min (70-130); Carbon Dioxide 19 mmol/L (23-31); Chloride 110 mmol/L (98-107); Glucose 96 mg/dL (83-110); Potassium 4.1 mmol/L (3.5-5.1); Sodium 143 mmol/L (136-145)
[2020-11-01] MEDS ORDERED: Dexamethasone 4 MG TAB PO SCH (08:00)
[2020-11-01] MEDS: Megestrol Acetate 40 MG TAB PO SCH (08:16)
[2020-11-01] MEDS: Ascorbic Acid 500 mg Chewable Tablet PO SCH (08:16)
[2020-11-01] MEDS: Tamsulosin HCl 0.4 MG CAP PO SCH (08:16)
[2020-11-01] MEDS: guaiFENesin ER 600 MG TAB PO SCH (08:16)
[2020-11-01] MEDS: Zinc Sulfate 220 MG CAP PO SCH (08:16)
[2020-11-01] MEDS ORDERED: Mag-Al Plus 1200 MG/1200 MG/120 MG/30 ML UDCUP PO PRN (12:08)
[2020-11-01 14:07] LABS: Troponin I 0.156 ng/mL (< 0.028)
[2020-11-01 17:27] VITALS: TEMP 96.6
== END 2020-11-01 18:23 | DRG 871 ==
LOC: ERS 09:08 → ERHOLD 11:14 → CCU 13:15 → IMCU/EMU 10-15 11:11 → T4-B 10-25 13:20 → IMCU/EMU 10-25 17:26 → CCU 10-25 17:30 → IMCU/EMU 10-26 15:09
PROVIDERS: ADMIT Internal Medicine; ATTEND Internal Medicine
PROC: 5A0955A Assistance with Respiratory Ventilation, Greater than 96 Consecutive Hours, High Flow/Velocity Cannula (ICD-10-PCS; principal; 2020-10-11)
PROC: XW033H5 Introduction of Tocilizumab into Peripheral Vein, Percutaneous Approach, New Technology Group 5 (ICD-10-PCS; 2020-10-11)
PROC: 8E0ZXY6 Isolation (ICD-10-PCS; 2020-10-11)
PROC: 5A09357 Assistance with Respiratory Ventilation, Less than 24 Consecutive Hours, Continuous Positive Airway Pressure (ICD-10-PCS; 2020-10-11)
DX: A41.89 Other specified sepsis (principal); U07.1 COVID-19; J12.82 Pneumonia due to coronavirus disease 2019; J96.01 Acute respiratory failure with hypoxia; N17.9 Acute kidney failure, unspecified; E87.2 Acidosis; N18.4 Chronic kidney disease, stage 4 (severe); I69.354 Hemiplegia and hemiparesis following cerebral infarction affecting left non-dominant side; G93.40 Encephalopathy, unspecified; E44.0 Moderate protein-calorie malnutrition; Z66 Do not resuscitate; E78.5 Hyperlipidemia, unspecified; I12.9 Hypertensive chronic kidney disease with stage 1 through stage 4 chronic kidney disease, or unspecified chronic kidney disease; E78.00 Pure hypercholesterolemia, unspecified; N40.0 Benign prostatic hyperplasia without lower urinary tract symptoms; R62.7 Adult failure to thrive; I08.1 Rheumatic disorders of both mitral and tricuspid valves; F17.200 Nicotine dependence, unspecified, uncomplicated; R77.8 Other specified abnormalities of plasma proteins; D69.6 Thrombocytopenia, unspecified; D75.1 Secondary polycythemia; R60.0 Localized edema; Z68.30 Body mass index [BMI] 30.0-30.9, adult; Z79.899 Other long term (current) drug therapy; Z79.82 Long term (current) use of aspirin
CPT/HCPCS: 36415; 36416; 36600; 71045; 80048; 80053; 80076; 81270; 82553; 82805; 83605; 83735; 83880; 84484; 85025; 85049; 85300; 85362; 85379; 85384; 85610; 85730; 86140; 87040; 93005; 93010; 93306; 93970; 94640; 94660; 94664; 94760; 96365; 96367; 96372; 96375; J0456; J0692; J0696; J0883; J1100; J1650; J1815; J1940; J2543; J2920; J3262; J3370; J3490; J7042; J7050; J7620; J7626; J8540; S0028; S0179